=== PATIENT | male | born 1985 | race American Indian/Alaskan Native ===

== ENCOUNTER 2017-03-14 13:09 | Emergency (ER) | payer OTHER ==
[2017-03-14 13:26] VITALS: BP 135/86
[2017-03-14] MEDS ORDERED: LIDOCAINE VISCOUS 2% MM NR (14:30)
[2017-03-14] MEDS ORDERED: LIDOCAINE VISCOUS 2% PO ONE (15:02)
--- NOTE | 2017-03-14 15:07 | Emergency Department Report ---
ED ENT HPI - General Chief complaint: Sore Throat Stated complaint: SORE THROAT Time Seen by Provider: 03/14/17 14:01 Source: patient Mode of arrival: Ambulatory Limitations: No Limitations - History of Present Illness Initial comments: This is a 32-year-old female nontoxic, well nourished in appearance, no acute signs of distress presents to the ED with c/o of sore throat x1 day. Patient denies any recent travels. Patient describes pain as aching with level of 8/10. Patient denies any fever, chills, cough, wheezing, headache, stiff neck, drooling, hoarseness, difficult swallowing, chest pain, shortness of breath, difficulty breathing, nausea, vomiting, numbness or tingling. Patient denies any allergies. Past medical history includes asthma. MD complaint: sore throat -: Gradual, days(s) (1) Location: throat Severity: mild Severity scale (0 -10): 8 Quality: aching Consistency: constant Improves with: none Worsens with: swallowing Associated Symptoms: pain with swallowing, sore throat. denies: fever, cough, gum swelling, toothache, tinnitus, hearing loss, discharge from ear, rhinorrhea - Related Data Previous Rx's Medication Instructions Recorded Last Taken Type Amoxicillin [Amoxicillin TAB] 875 mg PO BID #20 tablet 03/14/17 Unknown Rx Nystas/Diphen/Xyl Visc/Mylanta 15 ml MM Q6H 10 Days udc 03/14/17 Unknown Rx [Magic Mouthwash] Allergies Allergy/AdvReac Type Severity Reaction Status Date / Time No Known Allergies Allergy Verified 03/14/17 13:20 ED Dental HPI - General Chief complaint: Sore Throat Stated complaint: SORE THROAT Time Seen by Provider: 03/14/17 14:01 Source: patient Mode of arrival: Ambulatory Limitations: No Limitations - Related Data Previous Rx's Medication Instructions Recorded Last Taken Type Amoxicillin [Amoxicillin TAB] 875 mg PO BID #20 tablet 03/14/17 Unknown Rx Nystas/Diphen/Xyl Visc/Mylanta 15 ml MM Q6H 10 Days udc 03/14/17 Unknown Rx [Magic Mouthwash] Allergies Allergy/AdvReac Type Severity Reaction Status Date / Time No Known Allergies Allergy Verified 03/14/17 13:20 ED Review of Systems ROS: Stated complaint: SORE THROAT Other details as noted in HPI Constitutional: denies: chills, fever Eyes: denies: eye pain, eye discharge, vision change ENT: throat pain. denies: ear pain Respiratory: denies: cough, shortness of breath, wheezing Cardiovascular: denies: chest pain, palpitations Endocrine: no symptoms reported Gastrointestinal: denies: abdominal pain, nausea, diarrhea Genitourinary: denies: urgency, dysuria Musculoskeletal: denies: back pain, joint swelling, arthralgia Skin: denies: rash, lesions Neurological: denies: headache, weakness, paresthesias Psychiatric: denies: anxiety, depression Hematological/Lymphatic: denies: easy bleeding, easy bruising ED Past Medical Hx - Past Medical History Previous Medical History?: Yes Hx Asthma: Yes - Surgical History Past Surgical History?: No - Social History Smoking Status: Never Smoker Substance Use Type: None - Medications Home Medications: Home Medications Medication Instructions Recorded Confirmed Last Taken Type Amoxicillin [Amoxicillin TAB] 875 mg PO BID #20 tablet 03/14/17 Unknown Rx Nystas/Diphen/Xyl Visc/Mylanta 15 ml MM Q6H 10 Days udc 03/14/17 Unknown Rx [Magic Mouthwash] ED Physical Exam - General Limitations: No Limitations General appearance: alert, in no apparent distress - Head Head exam: Present: atraumatic, normocephalic, normal inspection - Eye Eye exam: Present: normal appearance, PERRL, EOMI. Absent: scleral icterus, conjunctival injection, nystagmus, periorbital swelling, periorbital tenderness Pupils: Present: normal accommodation - ENT ENT exam: Present: mucous membranes moist, TM's normal bilaterally, normal external ear exam - Expanded ENT Exam Expanded Ear exam: Present: normal external inspection Mouth exam: Present: normal external inspection, tongue normal. Absent: drooling, trismus, muffled voice, tongue elevation, laceration Teeth exam: Present: normal inspection Throat exam: Positive: tonsillar erythema, tonsillomegaly (2+), tonsillar exudate, other (Uvula midline. No abscess or swelling noted. ). Negative: R peritonsillar mass, L peritonsillar mass - Neck Neck exam: Present: normal inspection, full ROM. Absent: tenderness, meningismus, lymphadenopathy, thyromegaly - Respiratory Respiratory exam: Present: normal lung sounds bilaterally. Absent: respiratory distress, wheezes, rales, rhonchi, stridor, chest wall tenderness, accessory muscle use, decreased breath sounds, prolonged expiratory - Cardiovascular Cardiovascular Exam: Present: regular rate, normal rhythm, normal heart sounds. Absent: bradycardia, tachycardia, irregular rhythm, systolic murmur, diastolic murmur, rubs, gallop - GI/Abdominal GI/Abdominal exam: Present: soft, normal bowel sounds. Absent: distended, tenderness, guarding, rebound, rigid, diminished bowel sounds - Rectal Rectal exam: Present: deferred - Extremities Exam Extremities exam: Present: normal inspection, full ROM, normal capillary refill. Absent: tenderness, pedal edema, joint swelling, calf tenderness - Back Exam Back exam: Present: normal inspection, full ROM. Absent: tenderness, CVA tenderness (R), CVA tenderness (L), muscle spasm, paraspinal tenderness, vertebral tenderness, rash noted - Neurological Exam Neurological exam: Present: alert, oriented X3, CN II-XII intact, normal gait, reflexes normal - Psychiatric Psychiatric exam: Present: normal affect, normal mood - Skin Skin exam: Present: warm, dry, intact, normal color. Absent: rash ED Course Vital Signs 03/14/17 13:20 Temperature 98.4 F Pulse Rate 77 Respiratory 18 Rate Blood Pressure 135/86 O2 Sat by Pulse 98 Oximetry - Reevaluation(s) Reevaluation #1: 03/14/17 15:05 Patient is speaking in full sentences with no signs of distress noted. ED Medical Decision Making - Medical Decision Making Patient stated he feels much better after lidocaine visous. Patient is d/c with amox. Patient is stable and no signs of distress noted. Critical care attestation.: If time is entered above; I have spent that time in minutes in the direct care of this critically ill patient, excluding procedure time. ED Disposition Clinical Impression: Tonsillitis with exudate Disposition: DC-01 TO HOME OR SELFCARE Is pt being admited?: No Does the pt Need Aspirin: No Condition: Stable Instructions: Tonsillitis (ED), Amoxicillin (By mouth) Additional Instructions: Follow-up with a primary care doctor in 3-5 days or if symptoms worsen and continue return to emergency room as soon as possible. Prescriptions: Amoxicillin [Amoxicillin TAB] 875 mg PO BID #20 tablet Nystas/Diphen/Xyl Visc/Mylanta [Magic Mouthwash] 15 ml MM Q6H 10 Days udc Referrals: PRIMARY CAREMD [Primary Care Provider] - 3-5 Days SHAYLA LANDA MD [Staff Physician] - 3-5 Days [facility] [Outside] - 3-5 Days [facility] [Outside] - 3-5 Days Forms: Work/School Release Form(ED)
== END 2017-03-14 15:16 | disposition home or self-care (01) ==
LOC: ED 13:09
DX: J03.90 Acute tonsillitis, unspecified (principal); J45.909 Unspecified asthma, uncomplicated
CPT/HCPCS: 87116; 87430; 99282

== ENCOUNTER 2019-02-22 23:08 | Emergency (ER) | payer SELFPAY | END 2019-02-22 23:20 | disposition left against medical advice (07) | LOC: ED 23:08 | DX: K08.89 Other specified disorders of teeth and supporting structures (principal); Z53.21 Procedure and treatment not carried out due to patient leaving prior to being seen by health care provider ==

== ENCOUNTER 2019-02-24 22:54 | Emergency (ER) | payer SELFPAY ==
[2019-02-24 23:04] VITALS: BP 132/71
[2019-02-25] MEDS ORDERED: IBUPROFEN 600 MG TAB PO ONE (01:03)
[2019-02-25] MEDS ORDERED: ACETAMINOPHEN 325 MG TAB PO ONE (01:03)
--- NOTE | 2019-02-25 01:08 | Emergency Department Report ---
ED ENT HPI - General Chief complaint: Dental/Oral Stated complaint: TOOTHACHE Time Seen by Provider: 02/25/19 00:13 Source: patient Mode of arrival: Ambulatory Limitations: No Limitations - History of Present Illness Initial comments: This is a 34-year-old gentleman who is not known to this provider previously. He presents to the ER with complaint of tooth pain over tooth #1. He is currently seeing an outpatient dentist, Dr. Braeden Worrell, who recently prescribed patient amoxicillin antibiotics, which the patient did not complete, ibuprofen, 800 mg, and Tylenol 3. These prescriptions were given to the patient over 2 weeks ago. He ran out of his pain medicines. He has most of his antibiotic prescription. He complains of sharp rubbing dental pain, sensitive to hot and cold. He denies trismus, malocclusion, throat pain and lingual pain. He makes no additional complaints at this time MD complaint: tooth pain -: Gradual, week(s) Location: tooth # (1) Severity: moderate Quality: aching Consistency: constant Improves with: NSAID, other medication, rest Worsens with: eating Associated Symptoms: toothache - Related Data Previous Rx's Medication Instructions Recorded Last Taken Type Amoxicillin [Amoxicillin TAB] 875 mg PO BID #20 tablet 03/14/17 Unknown Rx Nystas/Diphen/Xyl Visc/Mylanta 15 ml MM Q6H 10 Days udc 03/14/17 Unknown Rx [Magic Mouthwash] Chlorhexidine Mouthwash [Peridex] 15 ml MM BID #1 bottle 02/25/19 Unknown Rx Ibuprofen [Motrin] 600 mg PO Q8H PRN #30 tablet 02/25/19 Unknown Rx oxyCODONE /ACETAMINOPHEN [Percocet 1 tab PO Q6HR PRN #10 tablet 02/25/19 Unknown Rx 5/325] Allergies Allergy/AdvReac Type Severity Reaction Status Date / Time No Known Allergies Allergy Verified 03/14/17 13:20 ED Dental HPI - General Chief complaint: Dental/Oral Stated complaint: TOOTHACHE Time Seen by Provider: 02/25/19 00:13 Source: patient Mode of arrival: Ambulatory Limitations: No Limitations - Related Data Previous Rx's Medication Instructions Recorded Last Taken Type Amoxicillin [Amoxicillin TAB] 875 mg PO BID #20 tablet 03/14/17 Unknown Rx Nystas/Diphen/Xyl Visc/Mylanta 15 ml MM Q6H 10 Days udc 03/14/17 Unknown Rx [Magic Mouthwash] Chlorhexidine Mouthwash [Peridex] 15 ml MM BID #1 bottle 02/25/19 Unknown Rx Ibuprofen [Motrin] 600 mg PO Q8H PRN #30 tablet 02/25/19 Unknown Rx oxyCODONE /ACETAMINOPHEN [Percocet 1 tab PO Q6HR PRN #10 tablet 02/25/19 Unknown Rx 5/325] Allergies Allergy/AdvReac Type Severity Reaction Status Date / Time No Known Allergies Allergy Verified 03/14/17 13:20 ED Review of Systems ROS: Stated complaint: TOOTHACHE Other details as noted in HPI ENT: dental pain Respiratory: see HPI Cardiovascular: as per HPI Gastrointestinal: nausea, vomiting Musculoskeletal: as per HPI Skin: as per HPI Neurological: as per HPI Psychiatric: as per HPI Hematological/Lymphatic: as per HPI ED Past Medical Hx - Past Medical History Previous Medical History?: Yes Hx Asthma: Yes - Surgical History Past Surgical History?: No - Social History Smoking Status: Never Smoker - Medications Home Medications: Home Medications Medication Instructions Recorded Confirmed Last Taken Type Amoxicillin [Amoxicillin TAB] 875 mg PO BID #20 tablet 03/14/17 Unknown Rx Nystas/Diphen/Xyl Visc/Mylanta 15 ml MM Q6H 10 Days [facility] 03/14/17 Unknown Rx [Magic Mouthwash] Chlorhexidine Mouthwash [Peridex] 15 ml MM BID #1 bottle 02/25/19 Unknown Rx Ibuprofen [Motrin] 600 mg PO Q8H PRN #30 tablet 02/25/19 Unknown Rx oxyCODONE /ACETAMINOPHEN [Percocet 1 tab PO Q6HR PRN #10 tablet 02/25/19 Unknown Rx 5/325] ED Physical Exam - General Limitations: No Limitations General appearance: alert, in no apparent distress - Head Head exam: Present: atraumatic, normocephalic - Eye Eye exam: Present: normal appearance, EOMI. Absent: nystagmus - ENT ENT exam: Present: normal orophraynx, mucous membranes moist, normal external ear exam, other (dental caries noted over tooth #1. There is no significant gingival swelling. There is dental tenderness to percussion. There is no stridor, or dysphonia.) - Neck Neck exam: Present: normal inspection, full ROM, other (there is no tracheal tenderness). Absent: tenderness, meningismus - Respiratory Respiratory exam: Present: normal lung sounds bilaterally. Absent: respiratory distress, wheezes, rales, rhonchi, stridor, chest wall tenderness - Cardiovascular Cardiovascular Exam: Present: regular rate, normal rhythm, normal heart sounds. Absent: bradycardia, tachycardia, irregular rhythm, systolic murmur, diastolic murmur, rubs, gallop - GI/Abdominal GI/Abdominal exam: Present: soft. Absent: distended, tenderness, guarding, rebound, rigid, pulsatile mass - Rectal Rectal exam: Present: deferred - Extremities Exam Extremities exam: Present: normal inspection, full ROM, other (2+ pulses noted in the bilateral upper and lower extremities. There is no long bony tenderness.). Absent: pedal edema, calf tenderness - Back Exam Back exam: Present: normal inspection, full ROM. Absent: paraspinal tenderness, vertebral tenderness - Neurological Exam Neurological exam: Present: alert, other (there is no facial droop. The tongue is midline. Extraocular movements are intact bilaterally. Patient speaking in full complete sentences. Shoulder shrug is intact bilaterally. Hearing is grossly intact bilaterally. Visual acuity intact to finger counting and color perception at a close distance. 5/5 strength 4 extremities. Sensation intact to light touch in 4 extremities.). Absent: motor sensory deficit - Psychiatric Psychiatric exam: Present: anxious - Skin Skin exam: Present: warm, dry, intact, normal color. Absent: rash ED Course Vital Signs 02/24/19 23:02 Temperature 98.4 F Pulse Rate 63 Respiratory 18 Rate Blood Pressure 132/71 O2 Sat by Pulse 98 Oximetry ED Medical Decision Making - Lab Data Vital Signs 02/24/19 23:02 Temperature 98.4 F Pulse Rate 63 Respiratory 18 Rate Blood Pressure 132/71 O2 Sat by Pulse 98 Oximetry - Medical Decision Making Differential diagnosis, including not limited to: Dental caries, dentalgia Assessment and plan: 34-year-old gentleman with subacute dental pain, found to have dental caries, not taking his antibiotics. He is afebrile with reassuring vital signs and clinically well-appearing. He is protecting his airway at this time, there is no evidence of odontogenic complication at this time, no evidence of intraoral/pharyngeal involvement. Patient will be given pain medication prescription, he was encouraged to take his antibiotics, he'll need to follow-up with his outpatient dentist. He does not appear to have an emergent medical condition at this time. Critical care attestation.: If time is entered above; I have spent that time in minutes in the direct care of this critically ill patient, excluding procedure time. ED Disposition Clinical Impression: Dental caries Disposition: DC- TO HOME OR SELFCARE Is pt being admited?: No Does the pt Need Aspirin: No Condition: Stable Additional Instructions: Complete the antibiotics that were prescribed to the patient by his private dentist. Take the pain medications as needed and directed. Use the chlorhexidine mouthwash as directed. Follow-up with your dentist within the next 2 weeks. Return to emergency room right away with Olson, worsened or different symptoms, or symptoms not present on the initial emergency room evaluation. Referrals: [facility] [Outside] - as needed
== END 2019-02-25 01:30 | disposition home or self-care (01) ==
LOC: ED 22:54
DX: K02.9 Dental caries, unspecified (principal); J45.909 Unspecified asthma, uncomplicated; Z79.899 Other long term (current) drug therapy
CPT/HCPCS: 99282